=== PATIENT | female | born 1975 | race Two or more races ===

== ENCOUNTER 2018-12-05 19:17 | Emergency (ER) | payer MEDICAID ==
[~2018-12-05] VITALS: Ht 162.6 cm; Wt 96.2 kg
[2018-12-05] MEDS ORDERED: Naproxen 500mg tab ORAL ONE (20:00)
[2018-12-05 20:07] VITALS: BP 132/80
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
[2018-12-05] MEDS ORDERED: NAPROXEN500 M2 ORAL (21:32)
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
[2018-12-05] MEDS ORDERED: Ketorolac 30mg Inj IM ONE (21:45)
--- NOTE | 2018-12-05 22:17 | NUR ---
ED Nurse Note: pt cleared to be d/c per ERMD, pt discharge and aftercare instruction provided w/ prescription, pt education done via discussion and handout, pt advised to follow up with pcp or return to ed if changes in condition, vss, ambulatory w/ steady gait, pt accompanied by daughter and family, left w/ all belongings.
[2018-12-05 22:18] VITALS: BP 121/56
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
== END 2018-12-05 22:18 | disposition home or self-care (01) ==
LOC: EDBD 19:17 → EMR 19:50
DX: S10.93XA Contusion of unspecified part of neck, initial encounter (principal); S30.1XXA Contusion of abdominal wall, initial encounter; S30.0XXA Contusion of lower back and pelvis, initial encounter; W22.8XXA Striking against or struck by other objects, initial encounter; Y92.9 Unspecified place or not applicable; N20.0 Calculus of kidney
CPT/HCPCS: 70486; 72125; 74176; 96372; 99284; J1885